=== PATIENT | female | born 1935 | race Caucasian/White ===

== ENCOUNTER → 2017-12-04 08:45 | Outpatient (CLI) | payer MEDICARE, SELFPAY ==
[2017-12-04 09:39] LABS: Absolute Lymphocyte Count 1.24 X10^3/ul (0.83-4.51); Absolute Neutrophil Count 2.1 X10^3/uL (2.0-7.7); Basophil# 0.04 X10^3/uL; Eosinophil# 0.12 X10^3/uL; Eosinophils% 3.1 % (0-5); Hematocrit 38.2 % (37-47); Hemoglobin 12.4 g/dl (12.0-15.0); Lymphocyte # 1.24 X10^3/ul (4.0); Mean Corp Hgb Conc 32.5 g/gl (32-36); Mean Corpuscular Hgb 30.8 pg (27.0-32.0); Mean Platelet Vol. 10.9 fl (6.2-12.0); Monocyte# 0.34 X10^3/uL; Monocyte% 8.8 % (0-10); Neutrophil # 2.14 X10^3/uL (2.7-7.7); Neutrophil % 55.1 % (47-70); POSITIVE COUNT NO; POSITIVE DIFFERENTIAL NO; POSITIVE MORPHOLOGY NO; Platelet Count 139 K/mm3 (150-450); RBC Distribution Width CV 12.6 % (11.6-14.6); RBC Distribution Width SD 44.1 fl (35.1-43.9); Red Blood Count 4.02 M/mm3 (4.2-5.4); White Blood Count 3.9 K/mm3 (4.4-11.0)
[2017-12-04 10:17] LABS: Anion Gap 5 (5-15); BUN 24 mg/dL (7-18); BUN/Creat Ratio 22.4 RATIO (10-20); Calcium,Total 8.6 mg/dL (8.5-10.1); Chloride 108 mmol/L (98-107); Creatinine, Serum 1.07 mg/dL (0.55-1.02); EST Glomerular Filtration Rate 52 mL/min (>60); Est Glom Filt Rate - Afr Amer 63 mL/min (>60); Glucose 83 mg/dL (74-106); Potassium 4.1 mmol/L (3.5-5.1); Sodium Level 142 mmol/L (136-145)
== END ==
PROVIDERS: Family Provider Family Medicine; PCP Family Medicine; Referring Provider Family Medicine; Visit Provider Family Medicine
DX: N18.3 Chronic kidney disease, stage 3 (moderate) (principal)
CPT/HCPCS: 36415; 80048; 85025

== ENCOUNTER → 2019-02-09 11:50 | Outpatient (CLI) | payer MEDICARE, SELFPAY ==
[2019-02-09 12:36] LABS: Absolute Lymphocyte Count 1.42 X10^3/uL (0.83-4.51); Basophil# 0.04 X10^3/uL; Basophil% 0.8 % (0-1); Eosinophil# 0.11 X10^3/uL; Eosinophils% 2.1 % (0-5); Hemoglobin 12.6 g/dL (12.0-15.0); Lymphocyte # 1.42 X10^3/ul (4.0); Lymphocyte % 27.7 % (19-41); Mean Corp Hgb Conc 32.3 g/dL (32-36); Mean Corpuscular Hgb 31.1 pg (27.0-32.0); Mean Corpuscular Volume 96.3 fL (81-99); Mean Platelet Vol. 11.2 fl (6.2-12.0); Monocyte# 0.56 X10^3/uL; Monocyte% 10.9 % (0-10); NRBC Flagged by Analyzer 0 % (0-5); Neutrophil # 2.98 X10^3/uL (2.7-7.7); Neutrophil % 58.1 % (47-70); Platelet Count 151 K/mm3 (150-450); RBC Distribution Width SD 42.9 fl (35.1-43.9); Red Blood Count 4.05 M/mm3 (4.2-5.4); White Blood Count 5.1 K/mm3 (4.4-11.0)
[2019-02-09 13:16] LABS: Anion Gap 6 (5-15); BUN 26 mg/dL (7-18); BUN/Creat Ratio 22.2 RATIO (10-20); Calcium,Total 8.9 mg/dL (8.5-10.1); Chloride 105 mmol/L (98-107); Creatinine, Serum 1.17 mg/dL (0.55-1.02); EST Glomerular Filtration Rate 47 mL/min (>60); Est Glom Filt Rate - Afr Amer 57 mL/min (>60); Glucose 90 mg/dL (74-106); Potassium 4.4 mmol/L (3.5-5.1); Sodium Level 140 mmol/L (136-145)
== END ==
PROVIDERS: Family Medicine; Family Provider Family Medicine; PCP Family Medicine; Referring Provider Family Medicine; Visit Provider Family Medicine
DX: N18.2 Chronic kidney disease, stage 2 (mild) (principal)
CPT/HCPCS: 36415; 80048; 85025

== ENCOUNTER → 2020-03-23 14:23 | Outpatient (CLI) | payer MEDICARE, SELFPAY ==
[2020-03-23 17:38] LABS: Absolute Lymphocyte Count 1.34 X10^3/uL (0.83-4.51); Absolute Neutrophil Count 2.6 X10^3/uL (2.0-7.7); Basophil# 0.04 X10^3/uL; Basophil% 0.9 % (0-1); Eosinophil# 0.19 X10^3/uL; Eosinophils% 4.1 % (0-5); Hematocrit 40.1 % (37-47); Hemoglobin 12.6 g/dL (12.0-15.0); Lymphocyte # 1.34 X10^3/ul (4.0); Lymphocyte % 29.1 % (19-41); Mean Corp Hgb Conc 31.4 g/dL (32-36); Mean Corpuscular Hgb 30.3 pg (27.0-32.0); Mean Corpuscular Volume 96.4 fL (81-99); Mean Platelet Vol. 11.8 fl (6.2-12.0); Monocyte# 0.47 X10^3/uL; Monocyte% 10.2 % (0-10); NRBC Flagged by Analyzer 0 % (0-5); Neutrophil # 2.56 X10^3/uL (2.7-7.7); Neutrophil % 55.5 % (47-70); Platelet Count 143 K/mm3 (150-450); RBC Distribution Width CV 12.2 % (11.6-14.6); RBC Distribution Width SD 43.6 fl (35.1-43.9); Red Blood Count 4.16 M/mm3 (4.2-5.4); White Blood Count 4.6 K/mm3 (4.4-11.0)
[2020-03-23 18:03] LABS: Anion Gap 5 (5-15); BUN 32 mg/dL (7-18); BUN/Creat Ratio 29.4 RATIO (10-20); Calcium,Total 9.7 mg/dL (8.5-10.1); Chloride 105 mmol/L (98-107); Cholesterol 183 mg/dL (200); Creatinine, Serum 1.09 mg/dL (0.55-1.02); EST Glomerular Filtration Rate 51 mL/min (>60); Est Glom Filt Rate - Afr Amer 62 mL/min (>60); Glucose 86 mg/dL (74-106); High Density Lipoprotein 91 mg/dL; Potassium 4.5 mmol/L (3.5-5.1); Sodium Level 140 mmol/L (136-145); Triglycerides 89 mg/dL; Very Low Density Lipoprotein 18 mg/dL (5-40)
== END ==
PROVIDERS: PCP Family Medicine; Referring Provider Family Medicine; Visit Provider Family Medicine
DX: Z00.00 Encounter for general adult medical examination without abnormal findings (principal); D69.6 Thrombocytopenia, unspecified; E66.9 Obesity, unspecified
CPT/HCPCS: 36415; 80048; 80061; 85025

== ENCOUNTER 2021-01-07 06:45 | Day surgery (SDC) | payer MEDICARE, SELFPAY ==
[2021-01-07] VITALS (7 sets, daily range): BP systolic 136–154; BP diastolic 71–81; PULSE 60–65; RESP 16; TEMP 36.1–36.3; O2SAT 93–100; BMI 25.0
[2021-01-07] MEDS: Lactated Ringers 1,000 ML 100 ML IV (07:20)
--- NOTE | 2021-01-07 08:25 | RAD_ITS ---
STUDY: X-RAY - PELVIS AND LEFT HIP REASON FOR EXAM: Female, 85 years old. LT HIP INJECTION TECHNIQUE: 2 views of the pelvis and hip. COMPARISON: None. FINDINGS: Intraoperative imaging provided for left hip injection. RAD/Fluoro Guided Needle Placement IMPRESSION: Intraoperative imaging provided for left hip injection. Electronically Signed: Morgan Doyle MD at 9:23 EST , Service support ,
[2021-01-07] MEDS: Bupivacaine 0.25% 30 ML Vial (08:31)
[2021-01-07] MEDS: Lidocaine 1% (5 ml sdv) 5 ML Vial (08:31)
[2021-01-07] MEDS: MethylPREDNISolone Acetate 80 MG/ML Vial (08:32)
--- NOTE | 2021-01-07 13:06 | PCM.OPRPT ---
Report of Operation Date of Procedure: 01/07/21 Description of Surgical Findings:: PREOPERATIVE DIAGNOSIS: Osteoarthritis of the left hip POSTOPERATIVE DIAGNOSIS: Osteoarthritis of the left hip PROCEDURE PERFORMED: Left hip intraarticular steroid injection under fluoroscopy guidance. ANESTHESIA: MAC. BLOOD LOSS: Minimal. COMPLICATIONS: None. DESCRIPTION OF PROCEDURE: History and physical of today was reviewed. Risks and benefits of the procedure were explained. The patient understood and agreed to proceed. Informed consent was obtained. IV inserted per routine protocol. The patient was taken to the operating room and placed in the supine position. The left hip area was prepped and draped in a sterile fashion using iodine x3. Under fluoroscopy guidance on AP view, the left hip joint was visualized. The skin and subcutaneous tissue was anesthetized with approximately 3 mL of 1% lidocaine using a 25-gauge regular needle approximately 3 cm cephalad to the left greater trochanter. Under direct visualization with fluoroscopy on an AP view, using a 22-gauge 5-inch spinal needle, the needle was advanced via the skin using the lateral approach. The tip of the needle was maneuvered and directed towards the superiormost aspect of the hip joint. Once the tip of the needle was at the vicinity of the joint, after negative aspiration for blood and positive aspiration of synovial fluid, a total of 1 mL of contrast was injected to confirm correct placement of the needle as well as halo spread around the hip joint. After repeated negative aspiration for blood and confirmation on AP as well as oblique view, a total of 10 mL of preservative-free 0.25% Marcaine with 80 mg of Depo-Medrol was injected easily. The needle was then removed intact. The patient experienced no sign or symptoms of intrathecal or intravascular injection. The patient experienced no paresthesia. The procedure was completed without any apparent difficulty or any complications. The patient appeared to tolerate it well. ASSESSMENT AND PLAN: This is an 85-year-old female with osteoarthritis of the left hip status post left hip intra-articular steroid injection under fluoroscopic guidance, patient will continue current medications, patient will follow approximately 2 weeks for reevaluation.
== END 2021-01-07 09:27 | disposition home or self-care (01) ==
LOC: SDC 06:46 → AC 06:55
PROVIDERS: PCP Family Medicine; Referring Provider Anesthesiology Pain Medicine; Visit Provider Anesthesiology Pain Medicine
PROC: 3E0U3GC Introduction of Other Therapeutic Substance into Joints, Percutaneous Approach (ICD-10-PCS; CPT 20610; principal; 2021-01-07 08:20)
DX: M16.12 Unilateral primary osteoarthritis, left hip (principal)
CPT/HCPCS: 20610; 76000; 77002; J7120

== ENCOUNTER 2021-03-06 09:23 | Outpatient (CLI) | payer MEDICARE, SELFPAY ==
--- NOTE | 2021-03-06 09:26 | BI_ITS ---
MAMMOGRAPHY - BILATERAL SCREENING REASON FOR EXAM: Female, 85 years old. Routine annual screening examination. PERTINENT HISTORY: Non-contributory. TECHNIQUE: Digital bilateral breast galo (3D mammographic acquisition) in the CC and MLO projections. 2-D mediolateral oblique (MLO) and craniocaudad (CC) views of both breasts were obtained. CAD: Full Field Digital Mammography with Computer Added Detection was performed. COMPARISON: Comparison is made with prior study dated 12/16/2010 and 12/13/2009. FINDINGS: Breast Composition: The breasts are heterogeneously dense, which may obscure small masses. There are no dominant masses or suspicious calcifications. No other significant abnormalities are identified. There has been no significant change since the prior study. BI/SCRN MAMM (CAD)W/GALO BILAT IMPRESSION: Stable bilateral screening mammogram. Yearly follow-up mammogram recommended. (A) ASSESSMENT CATEGORY: BIRADS Category 1: Negative. A letter regarding these results will be sent to the patient by the facility within 30 days. Approximately 10% of breast cancers are not detected by mammography. A normal mammogram should not delay biopsy of a clinically suspicious abnormality. [id number] Electronically Signed: Morgan Doyle MD at 11:07 EST , Service support ,
--- NOTE | 2021-03-06 09:30 | BD_ITS ---
STUDY: DUAL ENERGY X-RAY ABSORPTIOMETRY / DXA REASON FOR EXAM: Female, 85 years old. [id number]. Patient is postmenopausal. TECHNIQUE: Bone Mineral Density (BMD) measurements of lumbar spine and bilateral hips were obtained. COMPARISON: None. FINDINGS: Lumbar Spine (L1-L4): g/cm2 (1.039) / T-score (-0.1) / Z-score (2.7) Findings are suggestive of normal bone density with a low fracture risk. Left Femur Total: g/cm2 (0.808) / T-score (-1.1) / Z-score (1.2) Left Femoral Neck: g/cm2 (0.669) / T-score (-1.6) / Z-score (0.8) Right Femur Total: g/cm2 (0.796) / T-score (-1.2) / Z-score (1.1) Right Femoral Neck: g/cm2 (0.615) / T-score (-2.1) / Z-score (0.3) BD/Dexa Bone Density Study IMPRESSION: The patient is considered osteopenic as outlined below according to World Panfilo Organization (WHO) criteria with a moderate fracture risk. Reference Information: The T-score is the number of standard deviations above or below the standard which is normal for young adults at their peak bone mineral density. The World Health Organization (WHO) interprets the T-scores as follows: Above -1 Normal bone density Between -1 and -2.5 Osteopenia Equal to / or below -2.5 Osteoporosis As a practical clinical guideline, osteopenia may be graded as follows: Mild -1 through -1.5 Moderate -1.6 through -2.0 Severe -2.1 through -2.4 The Z-score is the number of standard deviations above or below age-matched controls. A Z-score of less than -1.5 would be considered abnormal. References: 1. NIH Osteoporosis and Related Bone Diseases www osteo.org 2. International Society for Clinical Densitometry www iscd.org 3. National Osteoporosis Foundation www nof.org Electronically Signed: Morgan Doyle MD at 14:57 EST , Service support ,
== END 2021-03-06 23:59 | disposition short-term general hospital (02) ==
LOC: OPBD 09:24
PROVIDERS: PCP Family Medicine; Referring Provider Family Medicine; Visit Provider Family Medicine
DX: Z00.00 Encounter for general adult medical examination without abnormal findings (principal); Z12.31 Encounter for screening mammogram for malignant neoplasm of breast; Z78.0 Asymptomatic menopausal state
CPT/HCPCS: 77063; 77067; 77080

== ENCOUNTER 2021-04-11 15:50 | Inpatient (IN) | payer MEDICARE, SELFPAY ==
[2021-04-11 15:57] VITALS: PULSE 74; RESP 18; O2SAT 96
[2021-04-11 16:00] VITALS: BP 111/66; PULSE 74; RESP 16; TEMP 36.9; O2SAT 96
[2021-04-11 16:21] VITALS: BMI 29.7
[2021-04-11] MEDS: Aspirin E.C. 81 MG Tablet PO (18:23)
[2021-04-11] MEDS: Polyethylene Glycol 3350 17 GM PACKET PO (18:23)
[2021-04-11] MEDS: Docusate Sodium 100 MG Capsule PO (18:23)
[2021-04-11] MEDS: Magnesium Citrate 300 ML PO (18:23)
--- NOTE | 2021-04-11 19:50 | HP.PCM_ITS ---
HPI - General General Date of Admission: 04/11/21 HPI Narrative MAXX MOTTA, is a 85 F who presents with followin04/07/2021 Dr. Boone performed left total hip arthroplasty at [facility]. 04/07/2021 Pain 5 out of 10. 04/11/2021 Admit to TCU with debility, here for rehabilitation, strengthening, prior to discharge home alone. [facility] Medical History (Updated 04/11/21 @ 19:[address] Luis F Sagastume MD) Ambulates with cane Arthritis Varicose vein of leg Wears hearing aid Wears partial dentures Home Medications cyanocobalamin (vitamin B-12) [Vitamin B-12] 1,000 mcg PO DAILY 01/03/21 [History Last Taken Unknown] furosemide 20 mg PO DAILY 01/03/21 [History Last Taken Unknown] ibuprofen 200 mg PO BID PRN 01/03/21 [History Last Taken Unknown] latanoprost 1 drp EACH EYE QPM 01/03/21 [History Last Taken Unknown] lysine 600 mg PO DAILY 01/03/21 [History Last Taken Unknown] polyethylene glycol 3350 [Miralax] 17 g PO BID 01/03/21 [History Last Taken Unknown] propranolol [Inderal] 60 mg PO DAILY 01/03/21 [History Last Taken Unknown] sennosides-docusate sodium [Senna Plus] 1 tab-cap PO QHS 01/03/21 [History Last Taken Unknown] tramadol 50 mg PO BID PRN 01/07/21 [History Last Taken Unknown] ascorbic acid (vitamin C) 1 mg PO DAILY 04/11/21 [History Last Taken Unknown] aspirin 1 mg PO BID 04/11/21 [History Last Taken Unknown] calcium 2 mg PO DAILY 04/11/21 [History Last Taken Unknown] docusate sodium 100 mg PO BID 04/11/21 [History Last Taken Unknown] lysine 1,000 mg PO DAILY 04/11/21 [History Last Taken Unknown] oxycodone-acetaminophen [Percocet] 1 - 2 tab PO Q6H PRN 04/11/21 [History Last Taken Unknown] propranolol 60 mg PO DAILY 04/11/21 [History Last Taken Unknown] sennosides [senna] 8.6 mg PO QHS 04/11/21 [History Last Taken Unknown] vitamin B complex [B Complex 100] 1 tab PO DAILY 04/11/21 [History Last Taken Unknown] zinc acetate 50 mg PO DAILY 04/11/21 [History Last Taken Unknown] Allergy/AdvReac Type Severity Reaction Status Date / Time Penicillins Allergy Hives Verified 04/11/21 18:16 alendronate sodium AdvReac Upset Verified 04/11/21 16:00 [From Fosamax] Stomach cephalexin [Cephalexin] AdvReac Other Verified 04/11/21 18:16 ciprofloxacin AdvReac Upset Verified 04/11/21 16:00 Stomach doxycycline AdvReac Diarrhea Verified 04/11/21 16:00 Surgical History (Updated 04/11/21 @ 19:[address] Luis F Sagastume MD) History of appendectomy History of bilateral carpal tunnel release History of bilateral cataract extraction History of hemorrhoidectomy History of partial colectomy History of total left hip replacement History of tubal ligation Social History (Updated 04/11/21 @ 19:[address] Luis F Sagastume MD) household members: none Smoking Status: Never smoker alcohol intake: never substance use type: does not use ROS Constitutional Constitutional: Denies chills, fever(s) or weight gain ENT HEENT: Denies headache(s), nasal congestion or nasal discharge Cardiovascular Cardiovascular: Denies chest pain or palpitations Respiratory/Chest Respiratory/Chest: Denies cough, excessive phlegm production or shortness of breath with exertion Gastrointestinal Gastrointestinal: Denies abdominal pain, nausea or vomiting Genitourinary Genitourinary: Denies dysuria Musculoskeletal Musculoskeletal: Denies joint pain or joint swelling Integumentary Integumentary: Denies rash or wounds Neurologic Neurologic: Denies focal weakness, numbness or tingling Psychiatric Psychiatric: Denies anxiety, auditory hallucinations, depression, homicidal ideation or suicidal ideation Vital Signs Vital Signs Vital Signs: 04/11/21 15:57 04/11/21 16:00 Temperature 98.4 F Temperature Source Temporal Pulse Rate 74 74 Pulse Rhythm Regular Pulse Strength Normal (2+) Respiratory Rate 18 16 Respiratory Effort Normal Respiratory Depth Normal Respiratory Pattern Normal Blood Pressure 111/66 Blood Pressure Mean 81 Blood Pressure Source Monitor Blood Pressure Position Sitting Blood Pressure Location Left Arm Pulse Ox 96 96 Oxygen Delivery Method Room Air Room Air Weight Weight: 73.89 kg Body Mass Index (BMI) 29.7 Physical Exam Const alert and oriented x3 General Appearance: cooperative HEENT normocephalic Eyes PERRL and EOMs intact bilaterally Neck supple, no JVD and no carotid bruits Resp normal respiratory effort, normal air movement and clear to auscultation bilaterally Cardio regular rate and regular rhythm GI normal to inspection, nondistended, normoactive bowel sounds, non-tender and non-distended Extremity normal capillary refill General Extremity: Negative for edema Skin no rashes or lesions noted General Skin Exam: no breakdown Psych affect normal Appearance: appropriate Assessment & Plan Assessment/Plan (1) Debility: (2) Status post total hip replacement, left: (3) Osteoarthritis: (4) Osteopenia: (5) Essential tremor: (6) Edema: (7) Fecal impaction of colon: (8) Glaucoma: PLAN: 85 year old female with below past medical history hospitalized for left total hip arthroplasty 04/09/[address] Boone, admitted to TCU with debility, here for rehabilitation, strengthening, prior to discharge home alone. * Debility - PT/OT. * Pain - Tylenol 1000mg tid, Oxycodone 5mg q4h prn pain (6-10) * Bowel - Miralax 17gm bid, Senna/colace 1 tablet bid, Dulcolax 10mg daily prn, Magnesium citrate 300ml po x 1 dose. * Adult immunization - Administer prevnar 20, fluzone, covid19 vaccine as appropriate. * DVT prophylaxis - Aspirin 81mg bid. * Vitamin c deficiency - Vitamin c 1000mg daily. * Calcium deficiency - calcium 500mg bid. * Vitamin b12 deficiency - B12 1000mg daily. * Edema - Lasix 20mg daily. * Glaucoma - Latanoprost 1gtt ou qpm. * Essential tremor - Propranolol 60mg daily.
[2021-04-11] MEDS: Latanoprost 0.005% 1 Bottle 1 DRP EACH EYE (20:52)
[2021-04-11] MEDS: oxyCODONE 5 MG Tablet PO (20:53)
[2021-04-11] MEDS: Acetaminophen 500 MG Tablet 1000 MG PO (20:53)
[2021-04-12] MEDS: oxyCODONE 5 MG Tablet PO ×2 (04:01→21:26)
[2021-04-12] MEDS: Furosemide 20 MG Tablet PO (04:02)
[2021-04-12] MEDS: Acetaminophen 500 MG Tablet 1000 MG PO ×3 (04:02→21:29)
[2021-04-12] MEDS: Cyanocobalamin 500 MCG Tablet 1000 MCG PO (04:02)
[2021-04-12] MEDS: Ascorbic Acid 500 MG Tablet 1000 MG PO (04:02)
[2021-04-12] MEDS: Propranolol LA 60 MG Capsule PO (04:02)
[2021-04-12 04:20] VITALS: BP 122/66; PULSE 66; RESP 18; TEMP 36.6; O2SAT 93
[2021-04-12 05:53] LABS: Absolute Lymphocyte Count 1.16 X10^3/uL (0.83-4.51); Absolute Neutrophil Count 3.9 X10^3/uL (2.0-7.7); Basophil# 0.02 X10^3/uL; Basophil% 0.3 % (0-1); Eosinophil# 0.13 X10^3/uL; Eosinophils% 2.2 % (0-5); Hematocrit 26.3 % (37-47); Hemoglobin 9.2 g/dL (12.0-15.0); Lymphocyte # 1.16 X10^3/ul (0.83-4.51); Lymphocyte % 19.7 % (19-41); Mean Corpuscular Volume 94.3 fL (81-99); Mean Platelet Vol. 10.8 fl (6.2-12.0); Monocyte# 0.62 X10^3/uL; Monocyte% 10.5 % (0-10); NRBC Flagged by Analyzer 0 % (0-5); Neutrophil # 3.94 X10^3/uL (2.7-7.7); Neutrophil % 66.8 % (47-70); Platelet Count 131 K/mm3 (150-450); RBC Distribution Width CV 11.9 % (11.6-14.6); RBC Distribution Width SD 41.3 fl (35.1-43.9); Red Blood Count 2.79 M/mm3 (4.2-5.4); White Blood Count 5.9 K/mm3 (4.4-11.0)
[2021-04-12 06:13] LABS: Anion Gap 3 (5-15); BUN 21 mg/dL (7-18); BUN/Creat Ratio 22.4 RATIO (10-20); Calcium,Total 8.3 mg/dL (8.5-10.1); Chloride 100 mmol/L (98-107); Creatinine, Serum 0.94 mg/dL (0.55-1.02); EST Glomerular Filtration Rate 61 mL/min (>60); Est Glom Filt Rate - Afr Amer 73 mL/min (>60); Estimated Creatinine Clearance 35.87 ml/min; Glucose 107 mg/dL (74-106); Potassium 4.2 mmol/L (3.5-5.1); Sodium Level 132 mmol/L (136-145)
--- NOTE | 2021-04-12 08:19 | NURSING ---
PT HOME MEDS LOCKED UP IN MED BOX IN ROOM.
[2021-04-12] MEDS: Vitamin B Comp W-C Capsule 1 CAP PO (09:04)
[2021-04-12] MEDS: Aspirin E.C. 81 MG Tablet PO ×2 (09:04→18:07)
[2021-04-12] MEDS: Calcium (Elemental) 500 MG Tablet PO ×2 (09:05→18:07)
[2021-04-12] MEDS: Tuberculin,Purif.prot.deriv. 50 TU/ML Vial 0.1 ML ID (09:11)
--- NOTE | 2021-04-12 09:34 | PCM.PN.RX ---
Progress Note - Pharmacy Subjective: [] TCU Admission Objective: Allergies Penicillins Allergy (Verified 04/11/21 18:16) Hives alendronate sodium [From Fosamax] Adverse Reaction (Verified 04/11/21 16:00) Upset Stomach cephalexin [Cephalexin] Adverse Reaction (Verified 04/11/21 18:16) Other ciprofloxacin Adverse Reaction (Verified 04/11/21 16:00) Upset Stomach doxycycline Adverse Reaction (Verified 04/11/21 16:00) Diarrhea Current Medications Generic Name Dose Route Start Last Admin Trade Name Freq PRN Reason Stop Dose Admin Acetaminophen 1,000 mg 04/11/21 22:00 04/12/21 04:02 Acetaminophen 500 Mg Tablet PO 1,000 mg TID SARA Administration Ascorbic Acid 1,000 mg 04/12/21 06:00 04/12/21 04:02 Ascorbic Acid 500 Mg Tablet PO 1,000 mg DAILY SARA Administration Aspirin 81 mg 04/11/21 17:00 04/12/21 09:04 Aspirin E.C. 81 Mg Tablet PO 81 mg 0800,1700 SARA Administration Bisacodyl 10 mg 04/11/21 20:01 Bisacodyl 5 Mg Tablet PO DAILY PRN Constipation Calcium Carbonate 500 mg 04/11/21 18:00 04/12/21 09:05 Calcium (Elemental) 500 Mg Tablet PO 500 mg 0800,1700 SARA Administration Cyanocobalamin 1,000 mcg 04/12/21 06:00 04/12/21 04:02 Cyanocobalamin 500 Mcg Tablet PO 1,000 mcg DAILY SARA Administration Furosemide 20 mg 04/12/21 06:00 04/12/21 04:02 Furosemide 20 Mg Tablet PO 20 mg DAILY SARA Administration Latanoprost 1 drp 04/11/21 21:00 04/11/21 20:52 Latanoprost 0.005% 1 Bottle EACH EYE 1 drp QPM SAAR Administration Multivitamins 1 capsule 04/12/21 08:00 04/12/21 09:04 Vitamin B Comp W-C Capsule PO 1 capsule 0800 SARA Administration Oxycodone HCl 5 mg 04/11/21 20:02 04/12/21 04:01 Oxycodone 5 Mg Tablet PO 5 mg Q4H PRN PRN Administration Pain Score 6-10 Polyethylene Glycol 17 gm 04/11/21 18:00 04/12/21 04:05 Polyethylene Glycol 3350 17 Gm Packet PO Not Given BID SARA Propranolol HCl 60 mg 04/12/21 06:00 04/12/21 04:02 Propranolol La 60 Mg Capsule PO 60 mg DAILY SARA Administration Senna/Docusate Sodium 1 tablet 04/12/21 06:00 04/12/21 04:05 Senna/Docusate Sodium 1 Tablet PO Not Given BID SARA Tuberculin PPD 0.1 ml 04/12/21 10:00 04/12/21 09:11 Tuberculin,Purif.Prot.Deriv. 50 Tu/Ml Vial ID 04/12/21 10:01 0.1 ml X1 ONE Administration Tuberculin PPD 0.1 ml 04/19/21 10:00 Tuberculin,Purif.Prot.Deriv. 50 Tu/Ml Vial ID 04/19/21 10:01 X1 ONE Zinc Sulfate 220 mg 04/12/21 06:00 04/12/21 04:02 Zinc Sulfate (50mg Elemental) 220 Mg Capsule PO 220 mg DAILY SARA Administration Problem List (Last Reviewed 04/11/21 @ 19:[address] Luis F Sagastume MD) Glaucoma (Acute) Fecal impaction of colon (Acute) Edema (Acute) Essential tremor (Acute) Osteopenia (Acute) Osteoarthritis (Acute) Status post total hip replacement, left (Acute) Debility (Acute) Vital Signs Temp Pulse Resp BP Pulse Ox 97.9 F 66 18 122/66 H 93 04/12/21 04:20 04/12/21 04:20 04/12/21 04:20 04/12/21 04:20 04/12/21 04:20 Oxygen Delivery Method Room Air Weight: 73.89 kg Body Mass Index (BMI) 29.7 Sodium 132 mmol/L (136-145) L 04/12/21 05:14 Potassium 4.2 mmol/L (3.5-5.1) 04/12/21 05:14 Chloride 100 mmol/L (98-107) 04/12/21 05:14 Carbon Dioxide 29.0 mmol/L (21.0-32.0) 04/12/21 05:14 Anion Gap 3 (5-15) L 04/12/21 05:14 BUN 21 mg/dL (7-18) H 04/12/21 05:14 Creatinine 0.94 mg/dL (0.55-1.02) 04/12/21 05:14 Est GFR (MDRD) Af Amer 73 mL/min (>60) 04/12/21 05:14 Est GFR (MDRD) Non-Af 61 mL/min (>60) 04/12/21 05:14 BUN/Creatinine Ratio 22.4 RATIO (10-20) H 04/12/21 05:14 Glucose 107 mg/dL (74-106) H 04/12/21 05:14 Assessment/Plan: 1) Pain: Acetaminophen 1000mg po tid scheduled, Oxycodone 5mg po q4h prn for pain 6-10. Please continue to monitor prn usage and for signs/symptoms of increased pain. --Prn note: Pt has had 2 administrations to date 2) Edema: Furosemide 20mg po daily. Pt's Na is below normal at 132, and K+ is within normal limits at 4.2. Please continue to monitor labs. Pt's average blood pressure is 116.5/66. Please continue to monitor pt's blood pressures. Please continue to monitor for signs/symptoms of swelling/edema 3) Essential Tremor: Propranolol LA 60mg po daily. Pt's average blood pressure is 116.5/66. Please continue to monitor pt's blood pressures. Pt's average pulse rate is 71.3. Please continue to monitor pt's pulse rate. 4) DVT Prophylaxis: Aspirin 81mg EC po bid with food. Please continue to monitor for signs/symptoms of bruising/bleeding and/or clot. 5) Glaucoma: Latanoprost 1 drop into each eye once every evening. Please continue to monitor for signs/symptoms of glaucoma. Psychotropic Medications: none Unnecessary Medications: none Bowel Regimen: Bisacodyl 10mg po daily prn for constipation, Miralax 17gm po bid, Senna/Docusate 1 tablet po bid. Please continue to monitor prn usage and for signs/symptoms of constipation/diarrhea. Pt has refused 1 of 2 Miralax doses, and 1 of 1 Senna/Docusate doses. Please continue to monitor pt refusals. Date of Note:: 04/12/21
--- NOTE | 2021-04-12 10:06 | CASEMGMT ---
Social Work Met with patient to complete initial assessment. Pt wishes to have son be primary contact and remain involved in updates/DC plans. Chart reflects. Discussed code status and MOLST form. Pt confirmed full code. MOLST communicated to , placed in chart. Explained [facility] insurance with [employer] 04/16 and continued stay is not guaranteed with each review. The goal is for pt to return home alone at [facility]. Son works maritime officer and cannot assist. SW to continue to follow for DC planning. Gifty Garay, [employer] HELPER STOREROOM KEEPER
[2021-04-12 14:45] VITALS: BP 146/54; PULSE 74; RESP 14; TEMP 36.3; O2SAT 97
[2021-04-12 21:00] VITALS: PULSE 83; RESP 16; O2SAT 92
[2021-04-12] MEDS: Latanoprost 0.005% 1 Bottle 1 DRP EACH EYE (21:26)
[2021-04-13] MEDS: oxyCODONE 5 MG Tablet PO ×3 (06:15→21:06)
[2021-04-13] MEDS: Ascorbic Acid 500 MG Tablet 1000 MG PO (06:17)
[2021-04-13] MEDS: Furosemide 20 MG Tablet PO (06:17)
[2021-04-13] MEDS: Acetaminophen 500 MG Tablet 1000 MG PO ×3 (06:17→21:03)
[2021-04-13] MEDS: Propranolol LA 60 MG Capsule PO (06:17)
[2021-04-13] MEDS: Cyanocobalamin 500 MCG Tablet 1000 MCG PO (06:17)
[2021-04-13] MEDS: Calcium (Elemental) 500 MG Tablet PO ×2 (08:04→17:43)
[2021-04-13] MEDS: Aspirin E.C. 81 MG Tablet PO ×2 (08:05→17:43)
[2021-04-13] MEDS: Vitamin B Comp W-C Capsule 1 CAP PO (08:05)
[2021-04-13 13:50] VITALS: BP 133/70; PULSE 71; RESP 16; TEMP 36.2; O2SAT 98
[2021-04-13] MEDS: Latanoprost 0.005% 1 Bottle 1 DRP EACH EYE (21:02)
[2021-04-14] MEDS: Acetaminophen 500 MG Tablet 1000 MG PO ×3 (05:49→21:18)
[2021-04-14] MEDS: Propranolol LA 60 MG Capsule PO (05:49)
[2021-04-14] MEDS: Ascorbic Acid 500 MG Tablet 1000 MG PO (05:49)
[2021-04-14] MEDS: Polyethylene Glycol 3350 17 GM PACKET PO (05:50)
[2021-04-14] MEDS: Cyanocobalamin 500 MCG Tablet 1000 MCG PO (05:50)
[2021-04-14] MEDS: Furosemide 20 MG Tablet PO (05:50)
[2021-04-14] MEDS: Calcium (Elemental) 500 MG Tablet PO ×2 (08:02→17:07)
[2021-04-14] MEDS: Vitamin B Comp W-C Capsule 1 CAP PO (08:02)
[2021-04-14] MEDS: Aspirin E.C. 81 MG Tablet PO ×2 (08:03→17:07)
[2021-04-14 15:05] VITALS: BP 117/50; PULSE 82; RESP 16; TEMP 36.3; O2SAT 97
[2021-04-14] MEDS: Senna/Docusate Sodium 1 Tablet PO (17:07)
[2021-04-14] MEDS: oxyCODONE 5 MG Tablet PO (21:18)
[2021-04-14] MEDS: Latanoprost 0.005% 1 Bottle 1 DRP EACH EYE (21:20)
[2021-04-15] MEDS: Polyethylene Glycol 3350 17 GM PACKET PO (05:57)
[2021-04-15] MEDS: Ascorbic Acid 500 MG Tablet 1000 MG PO (05:59)
[2021-04-15] MEDS: Acetaminophen 500 MG Tablet 1000 MG PO ×3 (05:59→20:23)
[2021-04-15] MEDS: Senna/Docusate Sodium 1 Tablet PO ×2 (06:00→17:53)
[2021-04-15] MEDS: Cyanocobalamin 500 MCG Tablet 1000 MCG PO (06:00)
[2021-04-15] MEDS: Furosemide 20 MG Tablet PO (06:00)
[2021-04-15] MEDS: Propranolol LA 60 MG Capsule PO (06:00)
[2021-04-15 06:03] VITALS: BP 145/77; PULSE 71
[2021-04-15] MEDS: Calcium (Elemental) 500 MG Tablet PO ×2 (08:46→17:53)
[2021-04-15] MEDS: Vitamin B Comp W-C Capsule 1 CAP PO (08:47)
[2021-04-15] MEDS: Aspirin E.C. 81 MG Tablet PO ×2 (08:47→17:53)
[2021-04-15 09:45] VITALS: PULSE 66; RESP 18; O2SAT 98
[2021-04-15] MEDS: oxyCODONE 5 MG Tablet PO ×2 (09:50→20:23)
--- NOTE | 2021-04-15 13:41 | NURSING ---
PER THERAPY,PT UP AB JASON. BUT MAY NEED HELP WITH ADL.
[2021-04-15 14:04] VITALS: BP 112/63; PULSE 71; RESP 16; TEMP 36.4; O2SAT 98
--- NOTE | 2021-04-15 16:46 | CHAPLAIN ---
Type of Pastoral Visit _x__ Initial Visit ___ Follow-up Visit ___ On-call Visit ___ General Patient Visit ___ Spiritual Assessment ___ Family Conference ___ Bereavement ___ Rapid Response ___ Code Blue ___ Other (describe below) Pastoral Care Referral From _x__ Patient ___ Family ___ Nurse ___ Physician ___ Section Cutter ___ Exterior Door Installer ___ Other (describe below) Sacrament/Intervention _x__ Active listening ___ Anointing ___ Gnosticism ___ Bereavement ___ Communion ___ Ashley exploration ___ _x__ Life review _x__ Prayer ___ Reconciliation ___ Sacrament of Sick _x__ Supportive presence ___ Wedding ___ Other (describe below) Pastoral Comments introduction and offer of support; patient gives life review including of her spouse last year and now living alone in same home they shared for 60 years; pt hopes to stay in their home but family urging other options for the future; pt believes her progress is going well; pt has a taoism connection and spiritual support as well as family support in the area
[2021-04-15] MEDS: Latanoprost 0.005% 1 Bottle 1 DRP EACH EYE (20:23)
[2021-04-16] MEDS: Senna/Docusate Sodium 1 Tablet PO ×2 (06:04→16:50)
[2021-04-16] MEDS: Cyanocobalamin 500 MCG Tablet 1000 MCG PO (06:04)
[2021-04-16] MEDS: Propranolol LA 60 MG Capsule PO (06:04)
[2021-04-16] MEDS: Furosemide 20 MG Tablet PO (06:04)
[2021-04-16] MEDS: Acetaminophen 500 MG Tablet 1000 MG PO ×3 (06:04→20:43)
[2021-04-16] MEDS: Polyethylene Glycol 3350 17 GM PACKET PO (06:04)
[2021-04-16] MEDS: Ascorbic Acid 500 MG Tablet 1000 MG PO (06:05)
[2021-04-16] MEDS: Aspirin E.C. 81 MG Tablet PO ×2 (07:52→16:49)
[2021-04-16] MEDS: Calcium (Elemental) 500 MG Tablet PO ×2 (07:52→16:49)
[2021-04-16] MEDS: Vitamin B Comp W-C Capsule 1 CAP PO (07:52)
[2021-04-16 15:10] VITALS: BP 118/60; PULSE 72; RESP 16; TEMP 36.4; O2SAT 99
--- NOTE | 2021-04-16 15:16 | CASEMGMT ---
Social Work Insurance issued LCD 04/18, DC 04/19. Spoke with pt and she is agreeable. Provided [facility] list and explained [facility] is in network with insurance. Pt agreeable to use. Referral made for PT/OT. No DME needs. Pt has family to transport. Plan: DC home 04/19, [facility] PT/OT Gifty Garay, MALINDA WALLACEW
--- NOTE | 2021-04-16 18:53 | DS.PCM_ITS ---
Providers Date of Admission: 04/11/21 Primary Care Physician: Dr. Kendall Reis MD Reason For Visit: LEFT HIP REPAIR Diagnosis Discharge Diagnosis (1) Debility: Status: Acute Code(s): R53.81 - Other malaise (2) Status post total hip replacement, left: Status: Acute Code(s): Z96.642 - Presence of left artificial hip joint (3) Osteoarthritis: Status: Acute Code(s): M19.90 - Unspecified osteoarthritis, unspecified site (4) Osteopenia: Status: Acute Code(s): M85.80 - Other specified disorders of bone density and structure, unspecified site (5) Essential tremor: Status: Acute Code(s): G25.0 - Essential tremor (6) Edema: Status: Acute Code(s): R60.9 - Edema, unspecified (7) Fecal impaction of colon: Status: Acute Code(s): K56.41 - Fecal impaction (8) Glaucoma: Status: Acute Code(s): H40.9 - Unspecified glaucoma Medications at Discharge Home Medications cyanocobalamin (vitamin B-12) [Vitamin B-12] 1,000 mcg PO DAILY 01/03/21 furosemide 20 mg PO DAILY 01/03/21 latanoprost 1 drp EACH EYE QPM 01/03/21 polyethylene glycol 3350 [Miralax] 17 g PO BID 01/03/21 ascorbic acid (vitamin C) 1 mg PO DAILY 04/11/21 aspirin 1 mg PO BID 04/11/21 calcium 2 mg PO DAILY 04/11/21 propranolol 60 mg PO DAILY 04/11/21 vitamin B complex 1 tab PO DAILY 04/11/21 zinc acetate 50 mg PO DAILY 04/11/21 acetaminophen 1,000 mg PO TID #0 tab 04/16/21 oxycodone 5 mg PO Q4H PRN PRN 7 Days #42 tab 04/16/21 sennosides-docusate sodium [Stool Softener-Stimulant Laxat] 1 tab PO BID 30 Days #60 tab 04/16/21 Hospital Course Operations total hip replacement (Left.) Procedures None Summary of Care Provided Minutes Spent on Discharge: 35 Hospital Course: 85 year old female with below past medical history hospitalized for left total hip arthroplasty 04/09/[address] Boone, admitted to TCU with debility, here for rehabilitation, strengthening, prior to discharge home alone. Discharge home alone 04/19/2021 alone, [facility] PT/OT. Physical Exam Const alert and oriented x3 General Appearance: cooperative HEENT normocephalic Eyes PERRL and EOMs intact bilaterally Neck supple, no JVD and no carotid bruits Resp normal respiratory effort, normal air movement and clear to auscultation bilaterally Cardio regular rate and regular rhythm GI normal to inspection, nondistended, normoactive bowel sounds, non-tender and non-distended Extremity normal capillary refill General Extremity: Negative for edema Skin no rashes or lesions noted General Skin Exam: no breakdown Psych affect normal Appearance: appropriate Weight / BMI Weight Weight: 70.052 kg Body Mass Index (BMI) 29.7 ABG / Lab / Microbiology Data Result Diagrams: 04/12/21 05:14 04/12/21 05:14 Microbiology: Microbiology 04/12/21 09:15 Nasal Secretion SARS-CoV-2 Antigen (Rapid) - Final D/C Instructions Discharge Diet: No restrictions Discharge Activity: Return to Normal Activity, May Shower and Use Walker Weight Bearing Status: Weight bearing as tolerated Call your doctor if you observe: Fever of 101 or Higher, Inability to urinate, Inability to have a bowel movement, Shortness of breath, Dizziness, Fainting spells, Swelling in the ankles, Chest pain and Uncontrolled pain Additional Instructions: Discharge home alone 04/19/2021 alone, [facility] PT/OT. Please Follow Up With: Carloz Boone MD When: As scheduled. Meaningful Use Info Meaningful Use Diagnoses (Choose all that apply): None applicable Discharge Plan Admission Admit Date/Time: 04/11/21 15:50 Primary Reason for Your Visit: Debility. Attending Provider: Luis F Sagastume Chi Primary Care Provider: Kendall Reis Instructions Additional Instructions / Restrictions: Discharge home alone 04/19/2021 alone, [facility] PT/OT. Discharge Orders/Prescriptions Prescriptions: New acetaminophen 500 mg Tablet 1,000 mg PO TID Qty: 0 RF: 0 oxycodone 5 mg Tablet 5 mg PO Q4H PRN PRN (Reason: Pain Score 6-10) 7 Days Qty: 42 RF: 0 sennosides-docusate sodium [Stool Softener-Stimulant Laxat] 8.6-50 mg Tablet 1 tab PO BID 30 Days Qty: 60 RF: 0 Continued furosemide 40 mg tablet 20 mg PO DAILY RF: 0 latanoprost 0.005 % Drops 1 drp EACH EYE QPM RF: 0 polyethylene glycol 3350 [Miralax] 17 gram Powder In Packet 17 g PO BID RF: 0 cyanocobalamin (vitamin B-12) [Vitamin B-12] 1,000 mcg Tablet 1,000 mcg PO DAILY RF: 0 calcium 600 mg Capsule 2 mg PO DAILY RF: 0 ascorbic acid (vitamin C) 1,000 mg Tablet 1 mg PO DAILY RF: 0 zinc acetate 50 mg (zinc) Capsule 50 mg PO DAILY RF: 0 propranolol 60 mg Capsule,Extended Release 24 Hr 60 mg PO DAILY RF: 0 aspirin 81 mg Capsule,Delayed Release(Dr/Ec) 1 mg PO BID RF: 0 vitamin B complex Tablet 1 tab PO DAILY RF: 0 Discontinued propranolol [Inderal] 60 mg Tablet 60 mg PO DAILY RF: 0 ibuprofen 200 mg Tablet 200 mg PO BID PRN (Reason: Pain) RF: 0 lysine 600 mg Tablet 600 mg PO DAILY RF: 0 Senna Plus 8.6-50 mg Capsule 1 tab-cap PO QHS RF: 0 tramadol 50 mg Tablet 50 mg PO BID PRN (Reason: Pain) RF: 0 sennosides [senna] 8.6 mg Tablet 8.6 mg PO QHS RF: 0 lysine 1,000 mg Tablet 1,000 mg PO DAILY RF: 0 oxycodone-acetaminophen [Percocet] 5-325 mg Tablet 1 - 2 tab PO Q6H PRN (Reason: Pain) RF: 0 docusate sodium 100 mg Capsule 100 mg PO BID RF: 0 Referrals / Follow Up: Kendall Reis MD [Primary Care Provider] - Disposition Disposition (needs filled in before D/C Order can be placed): Home Health Service
[2021-04-16] MEDS: oxyCODONE 5 MG Tablet PO (20:42)
[2021-04-16] MEDS: Latanoprost 0.005% 1 Bottle 1 DRP EACH EYE (20:43)
[2021-04-16 21:44] VITALS: PULSE 78; RESP 16; O2SAT 95
--- NOTE | 2021-04-17 05:31 | NURSING ---
Pt. declines all 0600 medications at this time, states I want to take my pills after breakfast, they make me feel sick if I take them this early. Pharmacy communication sent regarding patient request. Patient expresses thanks. Denies further requests. No distress observed or reported. Call light in reach.
[2021-04-17 08:11] VITALS: BP 133/67; PULSE 78
[2021-04-17] MEDS: Ascorbic Acid 500 MG Tablet 1000 MG PO (08:12)
[2021-04-17] MEDS: Acetaminophen 500 MG Tablet 1000 MG PO ×3 (08:12→20:59)
[2021-04-17] MEDS: Vitamin B Comp W-C Capsule 1 CAP PO (08:13)
[2021-04-17] MEDS: Cyanocobalamin 500 MCG Tablet 1000 MCG PO (08:13)
[2021-04-17] MEDS: Calcium (Elemental) 500 MG Tablet PO ×2 (08:13→16:43)
[2021-04-17] MEDS: Aspirin E.C. 81 MG Tablet PO ×2 (08:13→16:44)
[2021-04-17] MEDS: Furosemide 20 MG Tablet PO (08:13)
[2021-04-17] MEDS: Propranolol LA 60 MG Capsule PO (08:14)
[2021-04-17] MEDS: Senna/Docusate Sodium 1 Tablet PO ×2 (08:14→16:44)
[2021-04-17] MEDS: Polyethylene Glycol 3350 17 GM PACKET PO (08:15)
--- NOTE | 2021-04-17 09:32 | CASEMGMT ---
Social Work Brief Interview for Mental Status(15) and Resident Mood Interview--PHQ-9(3) completed this date. Pt having some trouble getting to sleep and staying asleep, she attributes this to medication. She also reports her energy as lower but returning. OMA Miller
--- NOTE | 2021-04-17 09:39 | CASEMGMT ---
Social Work IDT met with patient and son for care plan meeting. Discussed patient's progress in PT/OT and nursing. Pt back to baseline, adlib in room, completed 5 steps, walked 170 ft. [facility] issued DC 04/19. [facility] to provide PT/OT then transition pt to outpatient PT. Son to transport. Gifty Garay, FIBER GLASS WORKER [employer]
[2021-04-17 12:54] VITALS: BP 106/55; PULSE 78; RESP 16; TEMP 36.2; O2SAT 100
[2021-04-17 20:55] VITALS: PULSE 80; RESP 16; O2SAT 100
[2021-04-17] MEDS: Latanoprost 0.005% 1 Bottle 1 DRP EACH EYE (20:59)
[2021-04-18] MEDS: oxyCODONE 5 MG Tablet PO ×3 (00:26→21:06)
[2021-04-18 08:32] VITALS: BP 145/58; PULSE 81; RESP 16; TEMP 36.7; O2SAT 100
[2021-04-18] MEDS: Acetaminophen 500 MG Tablet 1000 MG PO ×3 (08:34→21:06)
[2021-04-18] MEDS: Cyanocobalamin 500 MCG Tablet 1000 MCG PO (08:35)
[2021-04-18] MEDS: Polyethylene Glycol 3350 17 GM PACKET PO (08:35)
[2021-04-18] MEDS: Furosemide 20 MG Tablet PO (08:35)
[2021-04-18] MEDS: Propranolol LA 60 MG Capsule PO (08:35)
[2021-04-18] MEDS: Ascorbic Acid 500 MG Tablet 1000 MG PO (08:36)
[2021-04-18] MEDS: Calcium (Elemental) 500 MG Tablet PO ×2 (08:36→18:08)
[2021-04-18] MEDS: Aspirin E.C. 81 MG Tablet PO ×2 (08:36→18:08)
[2021-04-18] MEDS: Vitamin B Comp W-C Capsule 1 CAP PO (08:36)
--- NOTE | 2021-04-18 16:14 | NURSING ---
Resident and son, Deepak, notified of 2 residents testing positive for COVID.
[2021-04-18] MEDS: Senna/Docusate Sodium 1 Tablet PO (18:08)
[2021-04-18] MEDS: Latanoprost 0.005% 1 Bottle 1 DRP EACH EYE (21:07)
[2021-04-19 05:57] LABS: Absolute Lymphocyte Count 1.18 X10^3/uL (0.83-4.51); Absolute Neutrophil Count 3.7 X10^3/uL (2.0-7.7); Basophil# 0.05 X10^3/uL; Basophil% 0.8 % (0-1); Eosinophils% 6.7 % (0-5); Hematocrit 30.1 % (37-47); Hemoglobin 10.2 g/dL (12.0-15.0); Lymphocyte # 1.18 X10^3/ul (0.83-4.51); Lymphocyte % 19.8 % (19-41); Mean Corp Hgb Conc 33.9 g/dL (32-36); Mean Corpuscular Hgb 32.7 pg (27.0-32.0); Mean Corpuscular Volume 96.5 fL (81-99); Mean Platelet Vol. 9.7 fl (6.2-12.0); Monocyte# 0.57 X10^3/uL; Monocyte% 9.6 % (0-10); NRBC Flagged by Analyzer 0 % (0-5); Neutrophil # 3.67 X10^3/uL (2.7-7.7); Neutrophil % 61.8 % (47-70); Platelet Count 258 K/mm3 (150-450); RBC Distribution Width CV 12.4 % (11.6-14.6); RBC Distribution Width SD 42.5 fl (35.1-43.9); Red Blood Count 3.12 M/mm3 (4.2-5.4)
[2021-04-19 06:27] LABS: Anion Gap 2 (5-15); BUN 34 mg/dL (7-18); BUN/Creat Ratio 29.8 RATIO (10-20); Calcium,Total 9.2 mg/dL (8.5-10.1); Chloride 104 mmol/L (98-107); Creatinine, Serum 1.14 mg/dL (0.55-1.02); EST Glomerular Filtration Rate 48 mL/min (>60); Est Glom Filt Rate - Afr Amer 59 mL/min (>60); Estimated Creatinine Clearance 29.57 ml/min; Glucose 99 mg/dL (74-106); Potassium 4.7 mmol/L (3.5-5.1); Sodium Level 136 mmol/L (136-145)
[2021-04-19] MEDS: Polyethylene Glycol 3350 17 GM PACKET PO (08:07)
[2021-04-19] MEDS: Aspirin E.C. 81 MG Tablet PO (08:07)
[2021-04-19] MEDS: Calcium (Elemental) 500 MG Tablet PO (08:07)
[2021-04-19] MEDS: Vitamin B Comp W-C Capsule 1 CAP PO (08:07)
[2021-04-19] MEDS: Senna/Docusate Sodium 1 Tablet PO (08:08)
[2021-04-19] MEDS: Acetaminophen 500 MG Tablet 1000 MG PO (08:08)
[2021-04-19] MEDS: Cyanocobalamin 500 MCG Tablet 1000 MCG PO (08:09)
[2021-04-19] MEDS: Ascorbic Acid 500 MG Tablet 1000 MG PO (08:09)
[2021-04-19] MEDS: Propranolol LA 60 MG Capsule PO (08:10)
[2021-04-19] MEDS: Furosemide 20 MG Tablet PO (08:10)
--- NOTE | 2021-04-19 08:25 | NURSING ---
pt home meds given back to pt and placed in her belongings bag.
[2021-04-19 09:20] VITALS: PULSE 90; RESP 18; O2SAT 93
[2021-04-19 09:56] VITALS: BP 106/62; PULSE 84; RESP 12; TEMP 36.6; O2SAT 100
--- NOTE | 2021-04-24 10:45 | MDS.RN ---
Information for the mds was obtained from review of the clinical record, interview of resident, staff, and direct observation of resident's care.
== END 2021-04-19 10:15 | disposition home health service (06) | DRG 561 ==
PROVIDERS: Admitting Provider Family Medicine Geriatric Medicine; PCP Family Medicine; Visit Provider Family Medicine Geriatric Medicine
DX: Z47.1 Aftercare following joint replacement surgery (principal); E53.8 Deficiency of other specified B group vitamins; M19.90 Unspecified osteoarthritis, unspecified site; G25.0 Essential tremor; H40.9 Unspecified glaucoma; Z96.642 Presence of left artificial hip joint; Z79.899 Other long term (current) drug therapy; Z79.82 Long term (current) use of aspirin; Z23 Encounter for immunization
CPT/HCPCS: 36415; 80048; 85025; 87426; 90732; 97110; 97116; 97162; 97166; 97530; 97535; 97802; G0009

== ENCOUNTER 2021-06-12 15:00 | Outpatient (RCR) | payer MEDICARE, SELFPAY ==
--- NOTE | 2021-06-10 11:13 | HP.PTEVAL ---
Patient's Visit Information MAXX MOTTA is a 85 year old F referred to Physical Therapy by Dr. Carloz Boone MD with a diagnosis of L KETURAH. Date of Evaluation: 06/07/21 Physical Therapist: Ermias Rosen DPT - Visit Plan Frequency: 1-2x /Week Duration: 4 Weeks Plan: Pt. given new HEP with focus on on standing and functional strengthening. Will update next week. She is to follow up with physician next week as well. - Subjective Pt. is here today for her initial evaluation with diagnosis of L hip arthroplasty. Pt. had an anterior approach with DOS on 04/09/21. Pt. arrives without AD without reports of pain. She lives by her self and has been cooking cleaning without issues. She did report having some trouble with getting on and off floor. Pt. denies pain. Pt. did have home health for a bit, but is doing well. She has been doing her exercises well. Pt. is hopeful to increase her strength and get back to all recreational activities without limitations. - Pain L hip Pain Intensity (Out of 10): 0 Pain Intensity Range: 0, 3 - Objective POSTURE: Pt. has normal posture in stance. Normal wt. shift noted. - Balance/Special Test Scores Lower Extremity Functional Score: 20 WOMAC Total Score: 29 WOMAC Percentatge: 69.8000 - Goals Goal 1:: LTG: Pt. to be I with HEP Goal Time Frame: 4-6 Weeks Goal 2:: LTG: Pt. to have increased L hip strength increased by 10# in all directions allowing for increased stability with functional mobility. Goal Time Frame: 4-6 Weeks Goal 3:: LTG: Pt. to decrease TUG time to less than 8 seconds indicating proper age appropriate functional mobility. Goal Time Frame: 4-6 Weeks Goal 4:: LTG: Pt. to be able to get on /off floor without limitations or issues. Goal Time Frame: 4-6 Weeks - Rehabilitation Potential Physical Therapy Diagnosis: Pt. has signs and symptoms consistent with L KETURAH, DOS: 04/09/21. She is doing very well. She has minimal strength limitations, she is walking well and is doing most of her ADLs and IADLs without issues. Pt. would benefit from a short stint in PT to adjust her exercises and progress them. Rehabilitation Potential: Excellent - Anticipated Interventions Patient/Client Instruction: Educate patient on: Condition, Plan of Care, Risk Factors, Benefits of Fitness Program For the Purpose of:: To improve safety, To improve health and function, To foster healthy habits, To improve decision making, To facilitate caregiver knowledge, To improve self management, To prevent re-injury, To improve ability to perform tasks related to life management, To improve tolerance to ADL's Therapeutic Exercise to Include: Body mechanics, Postural training, Flexibilty training, Gait and locomotor training For the Purpose of:: To decrease pain, To decrease swelling/inflammation, To increase ROM, To improve nutrient delivery to tissue, To improve muscle performance and motor function, To improve performance and independence with ADL's, To decrease level of supervision to perform tasks, To improve ability of physical actions for home/community/work/leisure, To improve gait and locomotor functions, To improve health of tissue Thank you for the opportunity to evaluate your patient. For Medicare and Medicare HMO plans, please review the plan of care and approve it. It will need to be FAXED BACK to us at [phone] for Medicare purposes. For Medicare only, by signing this I certify the plan of care. Please let me know if there are questions or concerns regarding this plan of care. Physician Signature: Date:
== END 2021-06-12 19:00 | disposition home or self-care (01) ==
LOC: PT 15:00
PROVIDERS: PCP Family Medicine; Referring Provider Orthopaedic Surgery; Visit Provider Orthopaedic Surgery
DX: M16.12 Unilateral primary osteoarthritis, left hip (principal)
CPT/HCPCS: 97110; 97161

== ENCOUNTER 2021-09-02 15:00 | Outpatient (RCR) | payer MEDICARE, SELFPAY ==
--- NOTE | 2021-07-31 13:36 | HP.PTEVAL_ITS ---
Patient's Visit Information MAXX MOTTA is a 85 year old F referred to Physical Therapy by Dr. Matthew Horowitz MD with a diagnosis of Bilateral Shoulder OA. Date of Evaluation: 07/31/21 Physical Therapist: Zoila Bay DPT - Visit Plan Frequency: 1-2x /Week Duration: 4 Weeks Plan: Focus on UE ROM, strength/stabilization of the scapula with increased functional movement. Postural Awareness, Scapular retractions, wall wash in the shower, supine cane flexion - Subjective Patient reports that she is having problems reaching overhead- right is worse than left. Shortly after Thong noticed that she had a hard time reaching up to the second shelf- progressively gotten worse. She then went to the MD who diagnosed with Osteopenia so she was referred to the [facility]- therapy and started her on Fosamax. Right hand dominate. She has had x-rays on both shoulders and reports OA. Pain is located inside the joint and is the whole thing. No pain radiating to the neck or elbow. No LOPEZ, blurred vision or dizziness. Worst: Left: 4-5/10 Right: 7-8/10 Agg: reaching overhead, rolling over on bed and laying on the right side, wash back, getting her shirt off over head, fastening her bra. Eases: none Best: 0/10. Describes the pain as sharp/jabbing when she gets to the end range. Sleep: on her back due to pain when rolling over on it- Doesn't wake her up. She is active- garden- 2 acres (mows), 30 bags of mulch this weekend and needs to do more. Had a hip replacement in Mar- does that exercises but does not do any arm exercises. No NT in the fingers or decreased hand dexterity noted. Fully I- dressing, driving, bathing, cooking, cleaning and grocery shopping. PMHx/Meds: Fosamax addition and no Metamucil- all the same. - Objective Posture: FH, RS, increased kyphosis- can correct with verbal and tactile cues. Palpation: not tender to touch. Observation: moderate scapular protraction at rest (sitting and standing). ROM: Left Shoulder: AROM Flexion: 130 AAROM: Flexion: 160, Abduction: 180 degrees, IR: thumb to T8, ER: 50 degrees, EXTn: WNL, Elbow/Wrist/Hand: WNL. Right Shoulder: AROM Flexion: 90 AAROM: Flexion: 140, Abduction: AROM: 100 degrees AAROM: 160 degrees IR: thumb to L3, ER: 50 degrees, Extn: WNL, Elbow/Wrist/Hand: WNL. Strength: Scap: fair minus, Shoulder: 4+/5 throughout at neutral, Elbow: 4+/5, Wrist: 4+/5 Digital Marketing Specialist: Left: 50 Right: 60, - Special Tests R Shoulder Empty Can - SS: Positive R Shoulder Belly Press - SupScap: Positive R Shoulder Neer - Impingement: Positive R Shoulder Stanford Delta - Impingement: Positive L Shoulder Empty Can - SS: Positive L Shoulder Belly Press - SupScap: Positive L Shoulder Neer - Impingement: Positive L Shoulder Stanford Delta - Impingement: Positive - Balance/Special Test Scores Quick DASH Score: 40.9075 - Goals Goal 1:: Patient will be I with HEP and progression Goal Time Frame: 4-6 Weeks Goal 2:: Patient will maintain proper posture t/o tx session to demo increased scap s/s Goal Time Frame: 4-6 Weeks Goal 3:: Patient will report no pain with full AROM of bilateral UE Goal Time Frame: 4-6 Weeks Goal 4:: Patient will report no pain while performing ADL's for 1 week. Goal Time Frame: 4-6 Weeks - Rehabilitation Potential Physical Therapy Diagnosis: Patient presents with hypomobility- she has decreased UE and scapular s/s, ROM and muscular endurance leading to poor posture and increased pain with ADL's. Rehabilitation Potential: Fair - Anticipated Interventions Patient/Client Instruction: Educate patient on: Benefits of Fitness Program Therapeutic Exercise to Include: Strength training, Endurance training, Coordination, Agility training, Body mechanics, Postural training, Flexibilty training, Passive ROM, Active ROM, Dynamic Lumbar Stabilization, Scapular Strength/Stabilization For the Purpose of:: To improve muscle performance and motor function TENS: Yes Cryotherapy (ice pack, ice massage): Yes Thermo therapy (hot pack): Yes Ultrasound (thermal/non thermal): Yes Thank you for the opportunity to evaluate your patient. For Medicare and Medicare HMO plans, please review the plan of care and approve it. It will need to be FAXED BACK to us at [phone] for Medicare purposes. For Medicare only, by signing this I certify the plan of care. Please let me know if there are questions or concerns regarding this plan of care. Physician Signature: Date:
--- NOTE | 2021-09-02 15:29 | HP.PTDCSUM ---
It has been my pleasure to treat MAXX MOTTA referred by Dr. Matthew Horowitz MD, with the diagnosis of Bilateral Shoulder OA for a total of 5 visit(s). Discharge Date: Please see the following information for a summary of their discharge status. Subjective: Patient reports that its better- 75-80% better. She is done mulching but is now pulling hostas and then re-planting them somewhere. Bilat Shldrs Pain Intensity (Out of 10): 0 % Improvement: 80 Objective/Function: Posture: FH, RS, increased kyphosis- can correct with verbal and tactile cues. Palpation: not tender to touch. Observation: moderate scapular protraction at rest (sitting and standing). ROM: Right Shoulder: AROM Flexion: 160 Abduction: 180 degrees, IR: thumb to T8, ER: 50 degrees, EXTn: WNL, Elbow/Wrist/Hand: WNL. Elbow/Wrist/Hand: WNL. Strength: Scap: fair minus, Shoulder: 4+/5 throughout at neutral, Elbow: 4+/5, Wrist: 4+/5 Cleaning Supervisor: Left: 50 Right: 60,. - Special Tests. R Shoulder Empty Can - SS: Positive. R Shoulder Belly Press - SupScap: Positive. R Shoulder Neer - Impingement: Positive. R Shoulder Stanford Delta - Impingement: Positive Goal 1:: Patient will be I with HEP and progression Goal Progress: Goal Met Goal 2:: Patient will maintain proper posture t/o tx session to demo increased scap s/s Goal Progress: Progressing Goal 3:: Patient will report no pain with full AROM of bilateral UE Goal Progress: Goal Met Goal 4:: Patient will report no pain while performing ADL's for 1 week. Goal Progress: Goal Met Plan: 09/02 D/c to I HEP. Focus on UE ROM, strength/stabilization of the scapula with increased functional movement. Postural Awareness, Scapular retractions, wall wash in the shower, supine cane flexion If there are questions or concerns regarding this patient's physical therapy, please feel free to call me at [phone]. Thank you for the referral of this patient. Sincerely, Zoila Bay, DPT Balance/Gait/Functional tests - Balance/Special Test Scores Quick DASH Score: 11.362
== END 2021-09-02 19:00 | disposition home or self-care (01) ==
LOC: PT 15:00
PROVIDERS: PCP Family Medicine; Referring Provider Internal Medicine Rheumatology; Visit Provider Internal Medicine Rheumatology
DX: M19.012 Primary osteoarthritis, left shoulder (principal); M19.011 Primary osteoarthritis, right shoulder; M75.41 Impingement syndrome of right shoulder; M75.42 Impingement syndrome of left shoulder
CPT/HCPCS: 97110; 97162; 97164

== ENCOUNTER → 2021-10-07 | Outpatient (CLI) | payer MEDICARE, SELFPAY ==
--- NOTE | 2021-10-07 11:43 | RAD_ITS ---
EXAM: XR SACRUM AND COCCYX, 2 OR MORE VIEWS CLINICAL INDICATION: fall, pain Technologist Notes pt fell backwards onto tailbone area recently, pain TECHNIQUE: Frontal and lateral views of the sacrum and coccyx. This report was created using appbackr report AppSlingr technology. COMPARISON: None. FINDINGS: SACRUM/COCCYX: Fracture of the sacrococcygeal region. No destructive or sclerotic lesions. Note that overlapping bowel shadows may however obscure fine detail in the frontal view. Sacroiliac joints are unremarkable. DISC SPACES: Degenerative findings in the lumbar spine. SOFT TISSUES: Unremarkable. No soft tissue swelling or gas. VASCULATURE: Total left hip arthroplasty. There are calcified phleboliths in the pelvis. This makes differentiation with distal ureteral stones difficult. RAD/Sacrum-Coccyx min 2 Views IMPRESSION: Fracture of the sacrococcygeal region. Electronically Signed: Randolph Anguiano MD at 15:40 EDT ,
== END | disposition home or self-care (01) ==
PROVIDERS: PCP Family Medicine; Referring Provider Family Medicine; Visit Provider Family Medicine
DX: M53.3 Sacrococcygeal disorders, not elsewhere classified (principal); W19.XXXA Unspecified fall, initial encounter
CPT/HCPCS: 72220

== ENCOUNTER → 2021-10-30 | Outpatient (CLI) | payer MEDICARE, SELFPAY ==
[2021-10-30 10:20] LABS: Absolute Lymphocyte Count 1.02 X10^3/uL (0.83-4.51); Absolute Neutrophil Count 2.8 X10^3/uL (2.0-7.7); Basophil# 0.03 X10^3/uL; Basophil% 0.7 % (0-1); Eosinophils% 2.3 % (0-5); Hematocrit 38.7 % (37-47); Hemoglobin 12.5 g/dL (12.0-15.0); Lymphocyte # 1.02 X10^3/ul (0.83-4.51); Mean Corp Hgb Conc 32.3 g/dL (32-36); Mean Corpuscular Hgb 31.3 pg (27.0-32.0); Mean Platelet Vol. 11.2 fl (6.2-12.0); Monocyte# 0.45 X10^3/uL; Monocyte% 10.2 % (0-10); NRBC Flagged by Analyzer 0 % (0-5); Neutrophil # 2.83 X10^3/uL (2.7-7.7); Neutrophil % 63.8 % (47-70); Platelet Count 146 K/mm3 (150-450); RBC Distribution Width CV 12.2 % (11.6-14.6); RBC Distribution Width SD 43.6 fl (35.1-43.9); Red Blood Count 3.99 M/mm3 (4.2-5.4); White Blood Count 4.4 K/mm3 (4.4-11.0)
[2021-10-30 10:49] LABS: Anion Gap 6 (5-15); BUN 28 mg/dL (7-18); BUN/Creat Ratio 24.1 RATIO (10-20); Calcium,Total 8.8 mg/dL (8.5-10.1); Chloride 105 mmol/L (98-107); Creatinine, Serum 1.16 mg/dL (0.55-1.02); EST Glomerular Filtration Rate 47 mL/min (>60); Est Glom Filt Rate - Afr Amer 57 mL/min (>60); Glucose 58 mg/dL (74-106); Potassium 4.4 mmol/L (3.5-5.1); Sodium Level 141 mmol/L (136-145)
[2021-11-04 10:20] LABS: Cholesterol 171 mg/dL (200); High Density Lipoprotein 82 mg/dL; Triglycerides 62 mg/dL; Very Low Density Lipoprotein 12 mg/dL (5-40)
== END | disposition home or self-care (01) ==
LOC: MFPLAB 09:23
PROVIDERS: PCP Family Medicine; Visit Provider Family Medicine
DX: Z00.00 Encounter for general adult medical examination without abnormal findings (principal); D69.6 Thrombocytopenia, unspecified; G25.0 Essential tremor; E66.9 Obesity, unspecified
CPT/HCPCS: 36415; 80048; 80061; 85025

== ENCOUNTER → 2021-11-20 | Outpatient (CLI) | payer MEDICARE, SELFPAY ==
--- NOTE | 2021-11-20 13:42 | RAD_ITS ---
STUDY: X-RAY - UNILATERAL RIBS ( LEFT ) WITH CHEST REASON FOR EXAM: Female, 86 years old. pain, fall TECHNIQUE - RIBS: 2 view(s) of the ribs. TECHNIQUE - CHEST: Single PA view of the chest. COMPARISON: None. FINDINGS - RIBS: Acute fractures lateral left fourth, fifth, and sixth ribs. FINDINGS - CHEST: The lungs are clear and expanded. There is no demonstrated pleural abnormality. Normal size heart. Normal mediastinum and martha. Normal visualized pulmonary arteries. Normal visualized aortic arch and descending thoracic aorta. There is a dextroscoliosis of the thoracic spine. Normal visualized ribs, clavicles, and shoulders. There is no demonstrated abnormality of the visualized soft tissue structures of the upper abdomen. RAD/Ribs Uni Min 3V w/PA Chest IMPRESSION: RIBS: Acute fractures of the left fourth, fifth, and sixth ribs. CHEST: No pneumothorax or hemothorax. Electronically Signed: Jorge Mckeon MD at 16:33 EDT ,
== END | disposition home or self-care (01) ==
LOC: MTRAD 13:41
PROVIDERS: PCP Family Medicine; Referring Provider Family Medicine; Visit Provider Family Medicine
DX: S22.42XA Multiple fractures of ribs, left side, initial encounter for closed fracture (principal); R07.81 Pleurodynia; W19.XXXA Unspecified fall, initial encounter
CPT/HCPCS: 71101

== ENCOUNTER → 2022-11-03 | Outpatient (CLI) | payer MEDICARE, SELFPAY ==
--- NOTE | 2022-11-03 12:38 | VDLE_ITS ---
Reason For Study: Lt Leg Pain RIGHT LEFT CFV is compressible, spontaneous, phasic, GSV is normal. competent and demonstrates normal CFV is compressible, spontaneous, phasic, augmentation. competent, and demonstrates normal Procedure augmentation. This is a venous duplex using B-mode, color FV is compressible, spontaneous, phasic, flow and spectral Doppler. competent and demonstrates normal Exam performed in department. augmentation. A preliminary report was called and/or faxed POP V is compressible, spontaneous, phasic, to Dr. Reis. competent and demonstrates normal augmentation. T/P Trunk is compressible. PTV is compressible. LT PerV is compressible. VL/Venous Duplex US, Unilateral Interpretation Summary There is no evidence of left lower extremity deep vein thrombosis. Left great s aphenous vein appears patent and compressible segmentally. Flow patterns right common femoral vein Ordering Physician: Kendall Reis Referring Physician: Kendall Reis Performed By: Venecia Bell, SUSY, RVT
== END | disposition home or self-care (01) ==
LOC: CVS 12:34
PROVIDERS: PCP Family Medicine; Referring Provider Family Medicine; Visit Provider Family Medicine
DX: M79.605 Pain in left leg (principal)
CPT/HCPCS: 93971

== ENCOUNTER → 2022-11-03 | Outpatient (CLI) | payer MEDICARE, SELFPAY ==
[2022-11-03 15:22] LABS: Absolute Lymphocyte Count 1.22 X10^3/uL (0.83-4.51); Absolute Neutrophil Count 2.6 X10^3/uL (2.0-7.7); Basophil# 0.04 X10^3/uL; Basophil% 0.9 % (0-1); Eosinophil# 0.18 X10^3/uL; Hematocrit 37.7 % (37-47); Hemoglobin 12.1 g/dL (12.0-15.0); Lymphocyte # 1.22 X10^3/ul (0.83-4.51); Lymphocyte % 27.4 % (19-41); Mean Corp Hgb Conc 32.1 g/dL (32-36); Mean Corpuscular Hgb 31.3 pg (27.0-32.0); Mean Corpuscular Volume 97.4 fL (81-99); Mean Platelet Vol. 11.7 fl (6.2-12.0); Monocyte# 0.45 X10^3/uL; Monocyte% 10.1 % (0-10); NRBC Flagged by Analyzer 0 % (0-5); Neutrophil # 2.56 X10^3/uL (2.7-7.7); Neutrophil % 57.4 % (47-70); Platelet Count 145 K/mm3 (150-450); Red Blood Count 3.87 M/mm3 (4.2-5.4); White Blood Count 4.5 K/mm3 (4.4-11.0)
[2022-11-03 16:15] LABS: Anion Gap 7 (5-15); BUN 37 mg/dL (7-18); BUN/Creat Ratio 29.4 RATIO (10-20); Calcium,Total 8.8 mg/dL (8.5-10.1); Chloride 104 mmol/L (98-107); Creatinine, Serum 1.26 mg/dL (0.55-1.02); EST Glomerular Filtration Rate 43 mL/min (>60); Est Glom Filt Rate - Afr Amer 52 mL/min (>60); Glucose 82 mg/dL (74-106); Magnesium 2.7 mg/dL (1.6-2.6); Potassium 4.8 mmol/L (3.5-5.1); Sodium Level 136 mmol/L (136-145)
== END | disposition home or self-care (01) ==
LOC: MFPLAB 13:36
PROVIDERS: PCP Family Medicine; Visit Provider Family Medicine
DX: M79.605 Pain in left leg (principal)
CPT/HCPCS: 36415; 80048; 83735; 85025; 93971

== ENCOUNTER → 2023-05-11 | Outpatient (CLI) | payer MEDICARE, SELFPAY ==
[2023-05-11 12:22] LABS: Absolute Lymphocyte Count 0.96 X10^3/uL (0.83-4.51); Absolute Neutrophil Count 2.3 X10^3/uL (2.0-7.7); Basophil# 0.03 X10^3/uL; Basophil% 0.7 % (0-1); Hematocrit 35.9 % (37-47); Hemoglobin 11.6 g/dL (12.0-15.0); Lymphocyte # 0.96 X10^3/ul (0.83-4.51); Lymphocyte % 23.9 % (19-41); Mean Corp Hgb Conc 32.3 g/dL (32-36); Mean Corpuscular Hgb 31.8 pg (27.0-32.0); Mean Corpuscular Volume 98.4 fL (81-99); Mean Platelet Vol. 11.1 fl (6.2-12.0); Monocyte# 0.51 X10^3/uL; Monocyte% 12.7 % (0-10); NRBC Flagged by Analyzer 0 % (0-5); Neutrophil # 2.26 X10^3/uL (2.7-7.7); Neutrophil % 56.5 % (47-70); Platelet Count 135 K/mm3 (150-450); RBC Distribution Width CV 12.5 % (11.6-14.6); RBC Distribution Width SD 45.2 fl (35.1-43.9); Red Blood Count 3.65 M/mm3 (4.2-5.4)
[2023-05-11 12:44] LABS: Anion Gap 3 (5-15); BUN 32 mg/dL (7-18); BUN/Creat Ratio 28.6 RATIO (10-20); Calcium,Total 8.9 mg/dL (8.5-10.1); Chloride 104 mmol/L (98-107); Creatinine, Serum 1.12 mg/dL (0.55-1.02); EST Glomerular Filtration Rate 49 mL/min (>60); Est Glom Filt Rate - Afr Amer 59 mL/min (>60); Glucose 90 mg/dL (74-106); Potassium 5.1 mmol/L (3.5-5.1); Sodium Level 139 mmol/L (136-145)
== END | disposition home or self-care (01) ==
LOC: MFPLAB 10:20
PROVIDERS: PCP Family Medicine; Visit Provider Family Medicine
DX: K59.00 Constipation, unspecified (principal); R60.9 Edema, unspecified
CPT/HCPCS: 36415; 80048; 85025

== ENCOUNTER → 2023-11-16 | Outpatient (CLI) | payer MEDICARE, SELFPAY ==
[2023-11-16 12:18] LABS: Absolute Lymphocyte Count 0.91 X10^3/uL (0.83-4.51); Absolute Neutrophil Count 3.1 X10^3/uL (2.0-7.7); Basophil# 0.03 X10^3/uL; Basophil% 0.6 % (0-1); Eosinophil# 0.17 X10^3/uL; Eosinophils% 3.6 % (0-5); Hematocrit 35.5 % (37-47); Hemoglobin 11.3 g/dL (12.0-15.0); Lymphocyte # 0.91 X10^3/ul (0.83-4.51); Lymphocyte % 19.1 % (19-41); Mean Corp Hgb Conc 31.8 g/dL (32-36); Mean Corpuscular Hgb 31.1 pg (27.0-32.0); Mean Corpuscular Volume 97.8 fL (81-99); Mean Platelet Vol. 11.5 fl (6.2-12.0); Monocyte# 0.51 X10^3/uL; Monocyte% 10.7 % (0-10); NRBC Flagged by Analyzer 0 % (0-5); Neutrophil # 3.13 X10^3/uL (2.7-7.7); Neutrophil % 65.8 % (47-70); Platelet Count 143 K/mm3 (150-450); RBC Distribution Width CV 12.3 % (11.6-14.6); RBC Distribution Width SD 44.5 fl (35.1-43.9); Red Blood Count 3.63 M/mm3 (4.2-5.4); White Blood Count 4.8 K/mm3 (4.4-11.0)
[2023-11-16 12:37] LABS: Anion Gap 5 (5-15); BUN 36 mg/dL (7-18); BUN/Creat Ratio 25.4 RATIO (10-20); Calcium,Total 9.3 mg/dL (8.5-10.1); Chloride 106 mmol/L (98-107); Creatinine, Serum 1.42 mg/dL (0.55-1.02); EST Glomerular Filtration Rate 37 mL/min (>60); Est Glom Filt Rate - Afr Amer 45 mL/min (>60); Glucose 98 mg/dL (74-106); Potassium 4.7 mmol/L (3.5-5.1); Sodium Level 138 mmol/L (136-145)
== END | disposition home or self-care (01) ==
LOC: MFPLAB 10:09
PROVIDERS: PCP Family Medicine; Visit Provider Family Medicine
DX: D69.6 Thrombocytopenia, unspecified (principal); G25.0 Essential tremor
CPT/HCPCS: 36415; 80048; 85025

== ENCOUNTER → 2024-05-18 | Outpatient (CLI) | payer OTHER, SELFPAY ==
[2024-05-18 12:47] LABS: Hematocrit 35.3 % (37-47); Hemoglobin 11.7 g/dL (12.0-15.0); Mean Corp Hgb Conc 33.1 g/dL (32-36); Mean Corpuscular Hgb 31.5 pg (27.0-32.0); Mean Corpuscular Volume 95.1 fL (81-99); Mean Platelet Vol. 11.2 fl (6.2-12.0); Platelet Count 145 K/mm3 (150-450); RBC Distribution Width CV 12.3 % (11.6-14.6); RBC Distribution Width SD 42.7 fl (35.1-43.9); Red Blood Count 3.71 M/mm3 (4.2-5.4)
[2024-05-18 13:04] LABS: Anion Gap 9 (5-15); BUN 30 mg/dL (4-19); Calcium,Total 8.9 mg/dL (7.6-11.0); Carbon Dioxide 25.9 mmol/L (21.0-32.0); Chloride 102 mmol/L (98-108); Creatinine, Serum 1.17 mg/dL (0.70-1.20); EST Glomerular Filtration Rate 45 (>60); Glucose 98 mg/dL (70-99); Potassium 4.9 mmol/L (3.3-5.1); Sodium Level 136 mmol/L (133-145)
== END | disposition home or self-care (01) ==
LOC: MFPLAB 10:39
PROVIDERS: PCP Family Medicine; Referring Provider Family Medicine; Visit Provider Family Medicine
DX: D69.6 Thrombocytopenia, unspecified (principal); G25.0 Essential tremor
CPT/HCPCS: 36415; 80048; 85027

== ENCOUNTER → 2024-07-22 | Outpatient (CLI) | payer OTHER, SELFPAY ==
[2024-07-22 11:15] LABS: ALB/GLOB Ratio 1.7 RATIO (0.9-2.4); AST(SGOT) 22 U/L (<=31); Alanine Aminotransfer ALT/SGPT 17 U/L (<=34); Alkaline Phosphatase 58 U/L (35-104); Anion Gap 10 (5-15); BUN 31 mg/dL (4-19); BUN/Creat Ratio 23.6 RATIO (10-20); Calcium,Total 9.4 mg/dL (7.6-11.0); Carbon Dioxide 25.2 mmol/L (21.0-32.0); Chloride 102 mmol/L (98-108); Creatinine, Serum 1.32 mg/dL (0.70-1.20); EST Glomerular Filtration Rate 39 (>60); Globulin 2.4 g/dL (2.2-4.2); Glucose 80 mg/dL (70-99); Potassium 5.4 mmol/L (3.3-5.1); Protein, Total 6.3 g/dL (5.9-8.4); Sodium Level 137 mmol/L (133-145); Total Bilirubin 0.35 mg/dL (0.00-1.30)
== END | disposition home or self-care (01) ==
LOC: MFPLAB 08:37
PROVIDERS: PCP Family Medicine; Visit Provider Family Medicine
DX: B35.1 Tinea unguium (principal)
CPT/HCPCS: 36415; 80053

== ENCOUNTER → 2024-11-14 | Outpatient (CLI) | payer OTHER, SELFPAY ==
[2024-11-14 12:07] LABS: Hematocrit 34.8 % (37-47); Hemoglobin 11.5 g/dL (12.0-15.0); Immature Granulocytes Count 0.030 X10^3/uL (0.0-0.0); Mean Corp Hgb Conc 33.0 g/dL (32-36); Mean Corpuscular Volume 95.9 fL (81-99); Mean Platelet Vol. 11.4 fl (6.2-12.0); NRBC Flagged by Analyzer 0 % (0-5); Platelet Count 142 K/mm3 (150-450); RBC Distribution Width CV 12.1 % (11.6-14.6); RBC Distribution Width SD 41.9 fl (35.1-43.9); Red Blood Count 3.63 M/mm3 (4.2-5.4); White Blood Count 4.7 K/mm3 (4.4-11.0)
[2024-11-14 13:05] LABS: Anion Gap 11 (5-15); BUN 38 mg/dL (4-19); BUN/Creat Ratio 28.2 RATIO (10-20); Calcium,Total 9.3 mg/dL (7.6-11.0); Carbon Dioxide 27.3 mmol/L (21.0-32.0); Chloride 100 mmol/L (98-108); Glucose 74 mg/dL (70-99); Potassium 5.2 mmol/L (3.3-5.1)
== END | disposition home or self-care (01) ==
LOC: MFPLAB 09:44
PROVIDERS: PCP Family Medicine; Visit Provider Family Medicine
DX: R60.9 Edema, unspecified (principal); D69.6 Thrombocytopenia, unspecified
CPT/HCPCS: 36415; 80048; 85025

== ENCOUNTER 2025-01-10 14:00 | Outpatient (RCR) | payer MEDICARE, SELFPAY ==
--- NOTE | 2024-12-16 09:35 | HP.PTEVAL_ITS ---
Patient's Visit Information Visit Information Visit Information: MAXX MOTTA is a 89 year old F referred to Physical Therapy by Dr. Carloz Boone MD with a diagnosis of Sacroillitis. Date of Evaluation: 12/16/24 Physical Therapist: Randolph Cherry, PT, ATC Visit Plan Frequency: 1x/Week Duration: 1 Week Plan: Issue and instruct pt on a core strengthening program and SKTC/DKTC stretc hes next visit. Subjective Subjective: Pt reports she has had R LBP for 2-3 months. The pain is intermittent in nature and is usually just achy, but she experiences a sharp pain at times. Pt notes she had x-rays which revealed that she has inflammation in her R SI joint. Pt was given a choice of an injection, or PT, so she is here today to begin PT. Pt notes she is very active as she lives by herself and is able to perform all house chores and yard duties. Pt denies any LE tingling or numbness at this time. Pt reports she has difficulty with getting out of bed secondary to her pain. Pt denies sleep difficulty at this time secondary to pain. Pt reports she is not really limited from performing her IADL's or ADL's at this time, but she just has to perform them more slowly. 0/10 pain while sitting here in the clinic, 5/10 pain at worst. Pain LBP: Pain Intensity (Out of 10): 0 Pain Intensity Range: 5 Objective Objective: Neuro: B LE sensation is WNL to light touch. MMT: B LE's are strong and healthy when compared bilaterally. ROM: Pt is severely limited with extension. 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 For Medicare and Medicare HMO plans, please review the plan of care and approve it. It will need to be FAXED BACK to us at [phone] for Medicare purposes. For Medicare only, by signing this I certify the plan of care. Please let me know if there are questions or concerns regarding this plan of care. Physician Signature: Date:
== END 2025-01-10 19:00 | disposition home or self-care (01) ==
LOC: PT 14:00
PROVIDERS: PCP Family Medicine; Referring Provider Orthopaedic Surgery; Visit Provider Orthopaedic Surgery
DX: M46.1 Sacroiliitis, not elsewhere classified (principal)
CPT/HCPCS: 97110; 97161